=== PATIENT | male | born 1980 | race African-American/Black ===

== ENCOUNTER 2016-06-14 21:51 | Emergency (ER) | payer SELFPAY ==
[~2016-06-14] VITALS: Ht 188 cm; Wt 130.0 kg
[~2016-06-14 21:51] MED LIST: AUGM875T PO; CARV12.52 PO; NAPR500 PO; PRIN5TAB PO
[2016-06-14 21:53] VITALS: BP 161/98; PULSE 129; RESP 18; TEMP 99.7; O2SAT 96
[2016-06-14] MEDS ORDERED: CEPH-460 PO (22:21)
[2016-06-14] MEDS ORDERED: BACT800T5 PO (22:21)
[2016-06-14] MEDS ORDERED: LISI2.5T3 PO (22:24)
[2016-06-14] MEDS ORDERED: CARV3.125 PO (22:24)
--- NOTE | 2016-06-14 22:26 | PD ---
HPI Chief Complaint: ENT Complaint Time Seen by Provider: 22:21 Travel History International Travel<30 days: No Contact w/Intl Traveler<30days: No Traveled to known affect area: No History of Present Illness HPI 35-year-old black male presents emergency Department with complaints of a infection in his left nostril. He states that this is been present now for the past week. He states that a few months ago he had a similar episode in a friend had drained it with a needle. It seemed to have gotten better but now has returned. He said pain is moderate. He has had some drainage coming from the left nostril. He had a cold last week but none this week. He denies any fever chills, ear pain or sore throat. [facility] Past Medical History Narrative Medical Hypertension Cardiovascular Problems: Yes (htn) Diminished Hearing: No Hypertension: Yes Tetanus Vaccination: Unknown Social History Alcohol Use: Yes (Occassionally) Tobacco Use: No Substance Use: No (Occassional use; Denies abuse; Mother denies abuse Hx by patient.) Allergies-Medications (Allergen,Severity, Reaction): Coded Allergies: No Known Allergies (Verified , 06/14/16) Reported Meds & Prescriptions Reported Meds & Active Scripts Active Augmentin 875 mg Tab (Amoxicillin & Pot Clavulanate 875 mg Tab) 875 Mg Tab 875 Mg PO BID 10 Days Naprosyn (Naproxen) 500 Mg Tab 500 Mg PO BID PRN Reported Carvedilol 12.5 mg (Carvedilol) 12.5 Mg Tab 12.5 Mg PO BID Prinivil (Lisinopril) 5 Mg Tab 5 Mg PO DAILY Review of Systems Except as stated in HPI: all other systems reviewed are Neg Physical Exam Narrative GENERAL: This is a well-nourished, well-developed patient, in no apparent distress. SKIN: No rashes, ecchymoses or lesions. Warm and dry. HEAD: Atraumatic. Normocephalic. EYES: PERRL, EOMI, no discharge or injection. No scleral icterus. EARS: Clear NOSE: The right naris normal. The left naris has a superficial abscess. Tender to touch. Slight drainage. This measures approximately 1 x 1 cm. THROAT: Mucosa pink and moist. Airway patent. NECK: Trachea midline. supple, moves head freely. LUNGS: Clear to auscultation. CV: Regular in rhythm. ABDOMEN: Soft nontender. EXT: No clubbing cyanosis or edema. Data Data Last Documented VS Vital Signs Date Time Temp Pulse Resp B/P Pulse Ox O2 Delivery O2 Flow Rate FiO2 06/14/16 21:53 99.7 129 18 161/98 96 Room Air Orders Cephalexin (Keflex) (06/14/16 22:30) Sulfamet-Trimeth Ds 800-160 Mg (Bactrim (06/14/16 22:30) MDM Medical Decision Making Medical Screen Exam Complete: Yes Emergency Medical Condition: Yes Medical Record Reviewed: Yes Differential Diagnosis MDM: High Differential diagnoses: Abscess, folliculitis, cellulitis, lymphangitis, abrasion, contact dermatitis Narrative Course Patient given Bactrim DS 1 g of Keflex by mouth. This is superficial left naris abscess Diagnosis Primary Impression: left naris abscess Patient Instructions: General Instructions Additional Instructions: Rest. Elevation. keep clean and dry. Warm compresses. Clear nose with hydrogen peroxide on Q-tips and then apply Neosporin the nostril. Three Advil every 6 hours. Keflex Septra DS,. Follow-up with a primary care doctor in one week. Return to the ER for any problems. Med/Other Pt SpecificInfo: Prescription(s) given, Wound Care Scripts Cephalexin (Keflex)500 Mg [id number] Mg PO Q6H #40 CAP Prov:Ric Urrutia MD 06/14/16 Sulfamethoxazole-Trimethoprim (Bactrim DS)800-160 Mg Tab1 Tab PO BID #20 TAB Prov:Ric Urrutia MD 06/14/16 Disposition: 01 DISCHARGE HOME Condition: Stable Jack Sarah Jun 14, 2016 22:26
[2016-06-14] MEDS ORDERED: CEPHALEXIN MONOHYDRATE 500 MG CAP PO ONE (22:30)
[2016-06-14] MEDS ORDERED: SULFAMETHOXAZOLE-TRIMETHOPRIM DS 800-160 MG TAB PO ONE (22:30)
== END 2016-06-14 22:30 | disposition home or self-care (01) ==
LOC: NEPB 21:51
DX: J34.0 Abscess, furuncle and carbuncle of nose (principal); I10 Essential (primary) hypertension
CPT/HCPCS: 99282

== ENCOUNTER 2017-09-04 11:12 | Emergency (ER) | payer SELFPAY ==
[~2017-09-04] VITALS: Ht 185.4 cm; Wt 122.5 kg
[~2017-09-04 11:12] MED LIST changes: +BACT800T5 PO; +CARV3.125 PO; +CEPH-460 PO; +LISI2.5T3 PO
[2017-09-04 11:28] VITALS: BP 162/96; PULSE 97; RESP 18; TEMP 98.8; O2SAT 99
[2017-09-04] MEDS ORDERED: IBUPROFEN 800 MG TAB PO ONE (12:00)
--- NOTE | 2017-09-04 12:07 | PD ---
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 Patient states he was moving some heavy things at work when he slipped on the wet floor and felt his left knee buckle. At first it was not that painful but since that time has gotten worse. He states he has increased pain with trying to flex the knee. He has difficulty bearing weight secondary to pain. He denies it giving out. He has no numbness, tingling, hip or ankle pain. Pain is rated as an 8 out of 10 today. He has no previous history of knee injury. He has no known drug allergies. PFSH Past Medical History Cardiovascular Problems: Yes (htn) Diminished Hearing: No Hypertension: Yes Social History Alcohol Use: Yes (Occassionally) Tobacco Use: No Substance Use: No (Occassional use; Denies abuse; Mother denies abuse Hx by patient.) Allergies-Medications (Allergen,Severity, Reaction): Coded Allergies: No Known Allergies (Verified Adverse Reaction, Unknown, 09/04/17) Reported Meds & Prescriptions Reported Meds & Active Scripts Active Keflex (Cephalexin) 500 Mg Cap 500 Mg PO Q6H Bactrim DS (Sulfamethoxazole-Trimethoprim) 800-160 Mg Tab 1 Tab PO BID Augmentin 875 mg Tab (Amoxicillin & Pot Clavulanate 875 mg Tab) 875 Mg Tab 875 Mg PO BID 10 Days Naprosyn (Naproxen) 500 Mg Tab 500 Mg PO BID PRN Reported Coreg (Carvedilol) 3.125 Mg Tab 3.125 Mg PO BID Lisinopril 2.5 Mg Tab 2.5 Mg PO DAILY Carvedilol 12.5 mg (Carvedilol) 12.5 Mg Tab 12.5 Mg PO BID Prinivil (Lisinopril) 5 Mg Tab 5 Mg PO DAILY Review of Systems Except as stated in HPI: all other systems reviewed are Neg General / Constitutional: No: Fever Eyes: No: Visual changes HENT: No: Headaches Cardiovascular: No: Chest Pain or Discomfort Respiratory: No: Shortness of Breath Gastrointestinal: No: Abdominal Pain Genitourinary: No: Dysuria Musculoskeletal: Positive: Arthralgias, Limited ROM, Pain Skin: No Rash Neurologic: No: Weakness Psychiatric: No: Depression Endocrine: No: Polydipsia Hematologic/Lymphatic: No: Easy Bruising Physical Exam Narrative GENERAL: Patient appears in mild distress. SKIN: Warm and dry. Normal color. Normal turgor. No abrasions. No ecchymosis. HEAD: Atraumatic. Normocephalic. EYES: Pupils equal and round. No scleral icterus. No injection or drainage. ENT: No nasal bleeding or discharge. Mucous membranes pink and moist. Pharynx is clear. Airways patent NECK: Trachea midline. Supple and nontender CARDIOVASCULAR: Regular rate and rhythm. RESPIRATORY: No accessory muscle use. Clear to auscultation. Breath sounds equal bilaterally. GASTROINTESTINAL: Abdomen soft, non-tender, nondistended. Hepatic and splenic margins not palpable. MUSCULOSKELETAL: Extremities without clubbing, cyanosis, or edema. No obvious deformities. Left knee has mild effusion in the prepatellar region. Patient has no laxity. Patient has difficulty with flexion of the knee secondary to pain. No crepitus is noted. NEUROLOGICAL: Awake and alert. No obvious cranial nerve deficits. Motor grossly within normal limits. Five out of 5 muscle strength in the arms and legs. Normal speech. PSYCHIATRIC: Appropriate mood and affect; insight and judgment normal. Data Data Last Documented VS Vital Signs Date Time Temp Pulse Resp B/P (MAP) Pulse Ox O2 Delivery O2 Flow Rate FiO2 09/04/17 11:28 98.8 97 18 162/96 (118) 99 Orders Orders Knee, Complete (4vws) (09/04/17 11:40) Ice/Cold Pack (09/04/17 11:40) Ibuprofen (Motrin) (09/04/17 12:00) [facility] Medical Decision Making Medical Screen Exam Complete: Yes Emergency Medical Condition: Yes Differential Diagnosis Slip at work. Left knee pain. Left knee sprain. Possible fracture. Narrative Course Patient is medically stable at time of exam. X-ray of the left knee is ordered. Patient is given ibuprofen 800 mg p.o. X-ray shows no acute fracture or dislocation. Patient is placed in a knee immobilizer for comfort. Patient continued on ibuprofen 800 mg 3 times daily with food #30. Patient to use ice and elevation frequently Patient to follow-up if symptoms do not improve over the next week. Diagnosis Primary Impression: Left knee sprain Qualified Codes: S83.92XA - Sprain of unspecified site of left knee, initial encounter Patient Instructions: General Instructions, Knee Immobilizer (DC), RICE Therapy (ED) Additional Instructions: X-ray shows no acute fracture or dislocation. Patient is placed in a knee immobilizer for comfort. Patient continued on ibuprofen 800 mg 3 times daily with food #30. Patient to use ice and elevation frequently Patient to follow-up if symptoms do not improve over the next week. Med/Other Pt SpecificInfo: Prescription(s) given Disposition: 01 DISCHARGE HOME Condition: Stable Isaac Cobb September 04, 2017 12:07
[2017-09-04] MEDS ORDERED: IBUP1TAB7 PO (12:08)
--- NOTE | 2017-09-04 12:29 | RADRPT ---
EXAM DATE/TIME: 09/04/2017 12:19 [facility] COMPARISON: No previous studies available for comparison. INDICATIONS : Left knee pain; twisted knee. MEDICAL HISTORY : None. SURGICAL HISTORY : None. ENCOUNTER: Initial ACUITY: 3 days PAIN SCORE: 8/10 LOCATION: Left anterior knee. FINDINGS: Four view examination of the left knee demonstrates no evidence of fracture or dislocation. Bony min eralization is normal. The articular surfaces are intact. The suprapatellar soft tissues have a nor mal configuration. CONCLUSION: No acute fracture. Mauricio Young MD on September 04, 2017 at 12:26 Board Certified Radiologist. This report was verified electronically.
== END 2017-09-04 14:00 | disposition home or self-care (01) ==
LOC: NEPK 11:12
DX: S83.92XA Sprain of unspecified site of left knee, initial encounter (principal); I10 Essential (primary) hypertension; W01.0XXA Fall on same level from slipping, tripping and stumbling without subsequent striking against object, initial encounter
CPT/HCPCS: 73564; 99283; L1830